=== PATIENT | female | born 1995 | race Caucasian/White ===

== ENCOUNTER → 2018-06-16 | Outpatient (CLI) | payer OTHER | LOC: BMCIMAGING 13:17 | PROVIDERS: ATTEND Physician Assistant | DX: S62.235A Other nondisplaced fracture of base of first metacarpal bone, left hand, initial encounter for closed fracture (principal) ==

== ENCOUNTER → 2018-06-30 | Outpatient (CLI) | payer OTHER | LOC: BMCIMAGING 13:07 | PROVIDERS: ATTEND Physician Assistant | DX: S62.235D Other nondisplaced fracture of base of first metacarpal bone, left hand, subsequent encounter for fracture with routine healing (principal) ==